=== PATIENT | male | born 1970 | race Caucasian/White ===

== ENCOUNTER 2020-05-13 06:02 | Outpatient (REF) | payer OTHER, SELFPAY ==
[2020-05-13 07:14] LABS: MANUAL DIFF FLAG NO
[2020-05-13 07:22] LABS: Basophils Percent Auto 0.3 % (0-2); Eosinophils Absolute Auto 0.3 X10*3/uL (0.0-0.4); Eosinophils Percent Auto 5.2 % (0-4); Hematocrit 41.8 % (42-52); Hemoglobin 13.8 g/dl (14.0-18.0); Imm Gran Abs Auto 0.02 X10*3/uL (0.00-0.03); Imm Gran Pct Auto 0.3 % (0.0-0.4); Lymphocytes Absolute Auto 1.9 X10*3/uL (1.2-4.9); Lymphocytes Percent Auto 29.1 % (20-40); Mean Corpuscular Hemoglobin 31.2 pg (27.0-33.0); Mean Corpuscular Volume 94.6 fL (80-98); Mean Platelet Volume 11.2 fL (9.4-12.4); Monocytes Absolute Auto 0.7 X10*3/uL (0.1-1.2); Monocytes Percent Auto 10.5 % (2-11); Neutrophils Absolute Auto 3.6 X10*3/uL (2.0-8.3); Neutrophils Percent Auto 54.6 % (45-73); Platelet Count 255 X10*3/uL (160-400); Red Blood Count 4.42 X10*6/uL (4.60-5.80); Red Cell Distribution Width 12.5 % (11.0-16.0); White Blood Count 6.6 X10*3/uL (4.8-10.8)
[2020-05-13 07:33] LABS: Glucose Urine UA NEG (NEG); Leukocyte Esterase Urine NEG (NEG); Nitrite Urine NEG (NEG); Specific Gravity - Urine 1.025 (1.005-1.025); Urine Blood NEG (NEG); Urine Ketones NEG (NEG); Urine Protein NEG (NEG-TRACE)
[2020-05-13 07:38] LABS: Appearance Urine CLEAR; Color Urine YELLOW
[2020-05-13 07:48] LABS: Alanine Aminotransferase 13 U/L (0-40); Albumin Level 4.2 g/dL (3.5-5.0); Alkaline Phosphatase 62 U/L (39-117); Anion Gap 13 (12-20); Aspartate Amino Transferase 14 U/L (5-37); Blood Urea Nitrogen 23 mg/dL (9-16); Calcium 8.2 mg/dL (8.4-10.2); Carbon Dioxide 25 mmol/L (22-29); Chloride 105 mmol/L (96-108); Cholesterol 166 mg/dL; Estimated Glomerular Filt Rate > 60; Glucose Fasting 82 mg/dL (60-99); HDL Cholesterol 51 mg/dL; LDL Cholesterol Calculated 104 mg/dl; Potassium 4.4 mmol/L (3.3-5.1); Sodium 139 mmol/L (135-145); Total Protein 7.1 g/dL (6.5-8.0); Triglycerides 59 mg/dL
[2020-05-13 08:11] LABS: Vitamin D 25-OH Total 26.7 ng/mL (>30)
== END 2020-05-13 06:03 | disposition home or self-care (01) ==
LOC: HO.LAB 06:02
PROVIDERS: PCP Internal Medicine; Visit Provider Internal Medicine
DX: Z00.00 Encounter for general adult medical examination without abnormal findings (principal)
CPT/HCPCS: 36415; 80053; 80061; 81003; 82306; 85025

== ENCOUNTER 2020-07-06 09:47 | Outpatient (REF) | payer OTHER, SELFPAY ==
[2020-07-06 10:49] LABS: Iron 165 mcg/dL (45-160); Percent Iron Saturation 65 % (15-50); Total Iron Binding Capacity 253 mcg/dL (228-428); Unsaturated Iron Binding 88 ug/dL
[2020-07-06 11:12] LABS: Thyroid Stimulating Hormone 2.43 uIU/mL (0.32-4.0)
[2020-07-06 11:42] LABS: Vitamin B12 500 pg/mL (200-900)
== END 2020-07-06 09:48 | disposition home or self-care (01) ==
LOC: HO.10HDL 09:47
PROVIDERS: Visit Provider Internal Medicine
DX: D64.9 Anemia, unspecified (principal); R63.5 Abnormal weight gain
CPT/HCPCS: 36415; 82607; 83540; 84443

== ENCOUNTER 2020-09-29 11:27 | Outpatient (REF) | payer OTHER, SELFPAY ==
[2020-09-29 12:41] LABS: Influenza A PCR NEGATIVE (Negative); Influenza B PCR NEGATIVE (Negative); Resp Syncy Virus RNA Qual PCR NEGATIVE (Negative); SARS COV2 PCR INHOUSE NEGATIVE (Negative)
== END 2020-09-29 11:28 | disposition home or self-care (01) ==
LOC: HO.LNP 11:27
PROVIDERS: Visit Provider Internal Medicine
DX: Z20.822 Contact with and (suspected) exposure to COVID-19 (principal)
CPT/HCPCS: 0241U

== ENCOUNTER 2021-10-21 06:02 | Outpatient (REF) | payer OTHER, SELFPAY ==
[2021-10-21 06:07] LABS: MANUAL DIFF FLAG NO
[2021-10-21 07:39] LABS: Basophils Percent Auto 0.5 % (0-2); Eosinophils Absolute Auto 0.5 X10*3/uL (0.0-0.4); Eosinophils Percent Auto 5.4 % (0-4); Hematocrit 43.2 % (42.0-52.0); Hemoglobin 14.3 g/dl (14.0-18.0); Imm Gran Abs Auto 0.03 X10*3/uL (0.00-0.03); Imm Gran Pct Auto 0.4 % (0.0-0.4); Lymphocytes Percent Auto 24.3 % (20-40); Mean Corpuscular HGB Conc 33.1 g/dl (31.0-36.0); Mean Corpuscular Hemoglobin 30.8 pg (27.0-33.0); Mean Corpuscular Volume 92.9 fL (80.0-98.0); Mean Platelet Volume 10.7 fL (9.4-12.4); Monocytes Absolute Auto 0.9 X10*3/uL (0.1-1.2); Monocytes Percent Auto 10.9 % (2-11); Neutrophils Absolute Auto 4.8 x10*3/uL (2.0-8.3); Neutrophils Percent Auto 58.5 % (45-73); Platelet Count 293 X10*3/uL (160-400); Red Blood Count 4.65 X10*6/uL (4.60-5.80); Red Cell Distribution Width 12.5 % (11.0-16.0); White Blood Count 8.3 X10*3/uL (4.8-10.8)
[2021-10-21 07:59] LABS: Alanine Aminotransferase 21 U/L (0-40); Albumin Level 4.3 g/dL (3.5-5.0); Alkaline Phosphatase 74 U/L (39-117); Anion Gap 15 (12-20); Aspartate Amino Transferase 17 U/L (5-37); Bilirubin Total 0.8 mg/dL (0.0-1.0); Blood Urea Nitrogen 18 mg/dL (9-16); Calcium 8.8 mg/dL (8.4-10.2); Carbon Dioxide 26 mmol/L (22-29); Chloride 105 mmol/L (96-108); Cholesterol 182 mg/dL; Estimated Glomerular Filt Rate > 60; Glucose Fasting 91 mg/dL (60-99); HDL Cholesterol 53 mg/dL; Iron 61 mcg/dL (45-160); LDL Cholesterol Calculated 117 mg/dl; Percent Iron Saturation 23 % (15-50); Potassium 4.8 mmol/L (3.3-5.1); Sodium 141 mmol/L (135-145); Total Iron Binding Capacity 265 mcg/dL (228-428); Total Protein 7.6 g/dL (6.5-8.0); Triglycerides 61 mg/dL; Unsaturated Iron Binding 204 ug/dL
[2021-10-21 08:07] LABS: Prostate Specific Antigen 0.92 ng/mL (<0.05-4.0); Vitamin D 25-OH Total 26.3 ng/mL (>30)
== END 2021-10-21 06:03 | disposition home or self-care (01) ==
LOC: HO.LAB 06:02
PROVIDERS: PCP Internal Medicine; Visit Provider Internal Medicine
DX: Z00.00 Encounter for general adult medical examination without abnormal findings (principal); E55.9 Vitamin D deficiency, unspecified; Z12.5 Encounter for screening for malignant neoplasm of prostate
CPT/HCPCS: 36415; 80053; 80061; 82306; 83540; 84153; 85025

== ENCOUNTER 2021-10-22 11:21 | Outpatient (REF) | payer OTHER, SELFPAY ==
--- NOTE | ~2021-10-22 | XR_ITS ---
EXAMINATION: XR CHEST CLINICAL INFORMATION: Cough and wheezing COMPARISON: None TECHNIQUE: 2 views of the chest were obtained. FINDINGS: No significant abnormality is noted involving the heart, lungs, mediastinum, bony thorax or soft tissues. XR/XR chest 2V IMPRESSION: Unremarkable chest examination.
== END 2021-10-22 11:22 | disposition home or self-care (01) ==
LOC: HO.XRAY 11:21
PROVIDERS: PCP Internal Medicine; Visit Provider Internal Medicine
DX: R05.9 Cough, unspecified (principal); R06.2 Wheezing
CPT/HCPCS: 71046

== ENCOUNTER 2021-11-11 09:40 | Outpatient (REF) | payer OTHER, SELFPAY ==
--- NOTE | ~2021-11-11 | FL_ITS ---
EXAMINATION: XR GI SERIES CLINICAL INFORMATION: Dysphagia. COMPARISON: None TECHNIQUE: Routine upper GI air-contrast study was performed in upright and lying position. FINDINGS: Following oral administration of thick barium and effervescent granules, there is normal propagation of bolus from the oral cavity through the pharynx, esophagus into stomach without obstruction, narrowing or stricture. Prominent mucosal pattern is seen within the pharynx but no ulceration or diverticulum seen. On placing patient supine and prone lying, the course, caliber and peristalsis of the stomach, duodenal bulb and the sweep is normal. The mucosal pattern is normal. There is mild gastroesophageal reflux without hiatal hernia. FLUOROSCOPY TIME: 2.3 minutes DOSE AREA PRODUCT: 32.298 Gy-cm2 (microgray-meter squared) FL/FL upper GI series IMPRESSION: Mild gastroesophageal reflux without hiatal hernia. Prominent mucosal pattern in the pharynx but no ulceration, mass or diverticulum visualized.
== END 2021-11-11 09:41 | disposition home or self-care (01) ==
LOC: HO.XRAY 09:40
PROVIDERS: PCP Internal Medicine; Visit Provider Internal Medicine
DX: R13.10 Dysphagia, unspecified (principal)
CPT/HCPCS: 74240

== ENCOUNTER → 2022-04-26 11:49 | Outpatient (BNVA) | payer OTHER, SELFPAY | PROVIDERS: PCP Internal Medicine; Referring Provider Internal Medicine; Visit Provider Surgery | DX: Z13.89 Encounter for screening for other disorder (principal) ==

== ENCOUNTER 2022-05-17 12:41 | Outpatient (REF) | payer OTHER, SELFPAY ==
--- NOTE | ~2022-05-17 | US_ITS ---
EXAMINATION: US ABDOMEN LIMITED CLINICAL INFORMATION: Ventral hernia without obstruction or gangrene. COMPARISON: None available. TECHNIQUE: Real-time imaging of the supraumbilical region. FINDINGS: In the supraumbilical region, a fat-containing hernia defect is noted, with measuring approximately 1.4 x 0.8 cm. The adjacent cutaneous, subcutaneous, muscular and fascial planes are unremarkable. No mass or fluid collection is seen. No lymphadenopathy is noted. No foreign body is noted. US/US abdomen limited IMPRESSION: A 1.4 cm in maximal diameter fat-containing supraumbilical hernia defect is noted.
== END 2022-05-17 12:42 | disposition home or self-care (01) ==
LOC: HO.US 12:41
PROVIDERS: Visit Provider Surgery
DX: K43.9 Ventral hernia without obstruction or gangrene (principal)
CPT/HCPCS: 76705

== ENCOUNTER 2022-10-10 06:03 | Day surgery (SDC) | payer OTHER, SELFPAY ==
[2022-10-05 14:13] VITALS: BMI 42.9
--- NOTE | 2022-10-06 12:10 | HO.ANESPROP2 ---
Documented by User: Ava Knowles NP 10/06/22 12:10 HPI - Anesthesia Eval Consult details Narrative: 52yo M for Hernia Repair Supraumbilical ventral PMFSH Active Problems Active Problems: All Active Problems (Updated 10/05/22 @ 14:12 by Jessica Edwards RN) Ventral hernia (Acute) Past Medical History Medical History GERD (gastroesophageal reflux disease) Family History Family History Paternal Grandmother Colon cancer Surgical History Surgical History History of endoscopic retrograde cholangiopancreatography History of tonsillectomy Social History Social History Are you a primary childbirth and infant care teacher to a significant other at home: No Do you presently have visiting nurse or other home services: No Alcohol intake: current Alcohol intake frequency: holidays/special occasions only Patient Tobacco Use Status: Never used Tobacco Use of substances other than those prescribed or required for medical reasons: No Have you been hit, kicked, punched, or otherwise hurt by someone within the past year? If so, by whom?: No Are you DNR?: No Advance Directives: No Advance Directives Information Provided: Yes Advance Directives on File: No Recently lost weight without trying: No Eating poorly because of decreased appetite: No Nutrition Risks: No Nutritional Risk Poor oral hygiene: No Meds Allergies Allergy/AdvReac Type Severity Reaction Status Date / Time cephalexin Allergy Intermediate Hives Verified 10/10/22 07:12 Home Medications Medication Instructions Recorded Confirmed Last Taken Type omeprazole 20 mg capsule,delayed 20 mg PO DAILY PRN Acid Reflux 10/05/22 10/05/22 Unknown History release Exam Exam Date and Time: October 06, 2022 1210 Height,Weight and Vital Signs: Height 5 ft 6 in Weight 120.656 kg Assessment and Plan Assessment Anesthesia Assessment: Chart Reviewed Documented by User: Maria Victoria Swann MD 10/10/22 08:08 [facility] Past Medical History Medical History GERD (gastroesophageal reflux disease) Family History Family History Paternal Grandmother Colon cancer Family history of problems with anesthesia: No Surgical History Surgical History History of endoscopic retrograde cholangiopancreatography History of tonsillectomy History of Problems with Anesthesia: No Social History Social History Are you a primary childbirth and infant care teacher to a significant other at home: No Do you presently have visiting nurse or other home services: No Alcohol intake: current Alcohol intake frequency: holidays/special occasions only Patient Tobacco Use Status: Never used Tobacco Use of substances other than those prescribed or required for medical reasons: No Have you been hit, kicked, punched, or otherwise hurt by someone within the past year? If so, by whom?: No Are you DNR?: No Advance Directives: No Advance Directives Information Provided: Yes Advance Directives on File: No Recently lost weight without trying: No Eating poorly because of decreased appetite: No Nutrition Risks: No Nutritional Risk Poor oral hygiene: No Meds Allergies Allergy/AdvReac Type Severity Reaction Status Date / Time cephalexin Allergy Intermediate Hives Verified 10/10/22 07:12 Home Medications Medication Instructions Recorded Confirmed Last Taken Type omeprazole 20 mg capsule,delayed 20 mg PO DAILY PRN Acid Reflux 10/05/22 10/05/22 Unknown History release Exam Airway Mallampati Class: III TM Dist: <=3cm Neck ROM: Limited Heart: rrr Lungs: cta Assessment and Plan Assessment Anesthesia Assessment: Anesthesia Plan Discussed Final Anesthetic Review Family History of Problems with Anesthesia: No History of Problems with Anesthesia: No NPO: Yes ASA Class: II Final Preanesthetic Review: No Changes in Pt Med Stat, Meds/Allgs Chart Reviewed, Consent Obtained/Reviewed and Anes Risks/Benef Reviewed Patient Risk: Intermediate Procedure Risk: Intermediate Anesthetic Plan Anesthetic Plan: GA and Regional Block (rectus sheath bilateral) Disposition: Standard PACU
[2022-10-10] MEDS: vancomycin/NS 2,000 MG/500 ML PLAST..BAG 250 MG IV (06:58)
[2022-10-10] MEDS: Lactated Ringers 1,000 ML 100 ML IVCONT (06:59)
--- NOTE | 2022-10-10 07:24 | MHC.SHP ---
Pre-Procedural Eval Section A Date of Service: 10/10/22 The patient is an INPATIENT: No Changes since office visit: Yes Patient answered all questions; No Cold of Flu in the past 2 weeks, No New Medical Problems and No Changes in Medication The History & Physical has been completed within 30 days and I have reviewed it.: No Section B Chief Complaint: Ventral hernia without obstruction or gangrene Details of Present Illness: Reports increased pain at the hernia site since last visit. No new symptoms. Relevant Family History (Specify if Yes): No Relevant Social History: None Present Medications: see Short Stay Collaborative assessment Medical History: No relevant PMH History of Previous Operations: No relevant previous surgery Allergies: Allergies Allergy/AdvReac Type Severity Reaction Status Date / Time cephalexin Allergy Intermediate Hives Verified 10/10/22 07:12 Review of Systems Sugical H&P ROS: Negative: Constitution, Cardiovascular, Respiratory, Neurological, Psychiatric, Hem-Onc, Allergic/Immunologic, Gastrointestinal, Genitourinary, Musculoskeletal, Integumentary, Endocrine and Eyes/Ears/Nose/Throat Exam Surgical H&P Exam: Normal: HEENT, Normal: Heart, Normal: Lungs, Normal: Extremities, Normal: Abdomen, Normal: Skin and Normal: Neurological Plan Diagnosis/Plan: Unchanged I have reviewed the history and physical and performed a pertinent physical examination on my patient. No changes have occurred unless specified. Time Spent With Patient Time: Total time managing care of this patient today ____ minutes.
--- NOTE | 2022-10-10 08:29 | P.OP_ITS ---
Operative Note Operative Note Date of Service: 10/10/22 Narrative: Preoperative diagnosis: Ventral hernia Postoperative diagnosis: Same Procedure: Repair of ventral hernia with mesh Surgeon: Yoshi Nunez MD Robotic Machine Tender Production: Mary Beck PA-C Anesthesia: General endotracheal Indications for procedure: 52-year-old male patient presenting with a painful lump located just above the umbilicus. On examination the patient has a palpable lump which increases with Valsalva maneuvers. This was confirmed by ultrasound. Operative findings: 2.5 cm ventral hernia, reducible Specimen: None Estimated blood loss: 2 mL Complications: None Procedure details: Patient was brought to the OR placed in a supine position. After administering general anesthesia patient's abdomen was prepped with ChloraPrep and draped in a sterile fashion. A surgical time-out was called the consent confirmed. Patient received preoperative antibiotics and Venodyne boots were in place. A midline incision was made just above the umbilicus and carried out through subcutaneous tissue. Hernia sac was identified in the midline just above the umbilicus. This was dissected circumferentially down to the fascial edge. The hernia sac was then reduced into the abdominal cavity. A preperi toneal space was then created without entering peritoneum. Defect was measuring at 2.5 cm. A 6.4 cm Ventralex mesh was then obtained. This was placed in the preperitoneal space and secured in 4 quadrants using a 1 Tycron suture. Fascia was then closed over the mesh using [id number] 1 Tycron sutures. Wounds were then irrigated with saline solution and suctioned dry. Subcutaneous tissue and dermis were then reapproximated using interrupted 3-0 Polysorb sutures. Skin was closed using a running subcuticular 4-0 Polysorb suture. Steri-Strips, flat gauze and Tegaderm were then applied. A rectus sheath block was then applied by Anesthesiology. The patient tolerated the procedure well. Sponge, instrument, and needle counts reported as correct. He was transferred to PACU in stable condition.
[2022-10-10 09:00] VITALS: BP 136/86; PULSE 81; RESP 18; TEMP 36.4; O2SAT 98
[2022-10-10 09:05] VITALS: BP 108/62; PULSE 77; RESP 18; O2SAT 94
[2022-10-10 09:10] VITALS: BP 109/64; PULSE 75; RESP 18; O2SAT 93
[2022-10-10 09:15] VITALS: BP 102/64; PULSE 70; RESP 18; O2SAT 93
[2022-10-10 09:30] VITALS: BP 102/57; PULSE 71; RESP 18; TEMP 36.3; O2SAT 95
== END 2022-10-10 10:10 | disposition home or self-care (01) ==
PROVIDERS: PCP Internal Medicine; Visit Provider Surgery
PROC: (CPT 49591; principal; 2022-10-10 07:30)
DX: K43.9 Ventral hernia without obstruction or gangrene (principal); K21.9 Gastro-esophageal reflux disease without esophagitis; Z79.899 Other long term (current) drug therapy; Z88.1 Allergy status to other antibiotic agents
CPT/HCPCS: 49591; C1781; J0131; J1100; J1170; J2250; J2405; J3010; J3370

== ENCOUNTER → 2022-10-10 06:03 | Outpatient (BNV) | payer OTHER, SELFPAY | PROVIDERS: PCP Internal Medicine; Visit Provider Surgery | DX: K44.9 Diaphragmatic hernia without obstruction or gangrene (principal) | CPT/HCPCS: 49591 ==

== ENCOUNTER 2022-10-18 09:33 | Outpatient (AMB) | payer OTHER, SELFPAY ==
--- NOTE | 2022-10-18 09:42 | A.OFFVIS_ITS ---
Intake Vital Signs 10/18/22 09:50 Height 5 ft 6 in Weight 271 lb BMI 43.7 BP 161/91 H Blood Pressure Location Lt brachial Position Sitting Pulse 88 Intake Visit Reasons: S/P supraumbilical ventral hernia Intake Note: Patient is seen in office for post op assessment post supraumbilical ventral hernia. Patient c/o: denies any concerns Auto Brake Technician Required: No Accompanied by: Self / Same As Patient Allergies cephalexin Allergy (Intermediate, Verified 10/18/22 09:43) Hives Medication List - Last Reconciled 10/18/22 by Yoshi Nunez MD omeprazole 20 mg PO DAILY PRN HPI HPI Comments History of Present Illness Details 52-year-old male patient returning 1 week following repair of a ventral hernia located above the umbilicus. He tolerated the procedure well he reports only minor discomfort at this time. He denies any fever, chills, nausea or vomiting. [facility] Medical History GERD (gastroesophageal reflux disease) Surgical History H/O ventral hernia repair (10/10/22) History of endoscopic retrograde cholangiopancreatography History of tonsillectomy Family History Paternal Grandmother Colon cancer Social History Are you a primary career and transition teacher to a significant other at home: No Do you presently have visiting nurse or other home services: No Alcohol intake: current Alcohol intake frequency: holidays/special occasions only Patient Tobacco Use Status: Never used Tobacco Physical Exam Vital Signs: Last Vital Signs Pulse 88 10/18/22 09:50 BP 161/91 H 10/18/22 09:50 BMI result Body Mass Index 43.7 Const General: no acute distress and well developed Nutritional Appearance: well nourished Orientation/consciousness: patient oriented x3 Resp Effort & Inspection: normal respiratory effort GI Other: Midline incision is clean, dry, and intact without redness or discharge. No hernia noted with Valsalva maneuvers. Abdomen image: 1. Incision midline, clean dry and intact. Skin General skin exam: no rashes or lesions noted Neuro General: patient oriented x3 Extrem General: Yes no clubbing, cyanosis or edema Assessment & Plan Assessment & Plan (1) Ventral hernia: Code(s): K43.9 - Ventral hernia without obstruction or gangrene Plan Patient returns 1 week following repair of a ventral hernia with mesh. He tolerated the procedure well the wounds are healing nicely. He should continue to avoid lifting greater than 10 lb and return in 1 month for follow-up examination. Coding Level of Care Code Global (95105) Diagnoses Ventral hernia K43.9
[2022-10-18 09:50] VITALS: BP 161/91; PULSE 88; BMI 43.7
== END 2022-10-18 09:58 | disposition home or self-care (01) ==
PROVIDERS: PCP Internal Medicine; Visit Provider Surgery
DX: K43.9 Ventral hernia without obstruction or gangrene (principal)
CPT/HCPCS: 99213

== ENCOUNTER → 2022-10-18 09:33 | Outpatient (BNVA) | payer OTHER, SELFPAY | PROVIDERS: PCP Internal Medicine; Visit Provider Surgery ==

== ENCOUNTER 2022-11-11 09:01 | Outpatient (AMB) | payer OTHER, SELFPAY ==
--- NOTE | 2022-11-11 09:09 | MHC.OFFVIS ---
Intake Vital Signs 11/11/22 09:10 Height 5 ft 6 in Weight 262 lb BMI 42.3 BP 146/83 H Blood Pressure Location Lt brachial Position Sitting Pulse 86 Intake Visit Reasons: 1 mth follow up supraumbilical ventral hernia Intake Note: Patient is seen in office for one month follow up visit, post supraumbilical ventral hernia. Patient c/o: admits to feeling a string coming out of the incision Horse Race Timer Required: No Accompanied by: Self / Same As Patient Allergies cephalexin Allergy (Intermediate, Verified 11/11/22 09:10) Hives Medication List - Last Reconciled 11/11/22 by Yoshi Nunez MD omeprazole 20 mg PO DAILY PRN HPI HPI Comments History of Present Illness Details 52-year-old male status post repair of a ventral hernia on 10/10/2022. He returns approximately 1 month for final postoperative visit. He feels well and denies any ongoing pain. Does note a small white suture from the bottom of the incision. [facility] Medical History GERD (gastroesophageal reflux disease) Surgical History H/O ventral hernia repair (10/10/22) History of endoscopic retrograde cholangiopancreatography History of tonsillectomy Family History Paternal Grandmother Colon cancer Social History Are you a primary medical care evaluation specialist to a significant other at home: No Do you presently have visiting nurse or other home services: No Alcohol intake: current Alcohol intake frequency: holidays/special occasions only Patient Tobacco Use Status: Never used Tobacco Physical Exam Const General: no acute distress and well developed Nutritional Appearance: well nourished Orientation/consciousness: patient oriented x3 Resp Effort & Inspection: normal respiratory effort GI Other: Midline incision is clean, dry, and intact without redness or discharge. Small suture consistent with a 4-0 Polysorb was removed at the inferior portion of the incision. There is no evidence of infection. No hernia noted with Valsalva maneuvers. Skin General skin exam: no rashes or lesions noted Neuro General: patient oriented x3 Extrem General: Yes no clubbing, cyanosis or edema Assessment & Plan Assessment & Plan (1) Ventral hernia: Code(s): K43.9 - Ventral hernia without obstruction or gangrene Plan 52-year-old male patient status post repair of a ventral hernia with mesh. He tolerated the procedure well and he is now approximately 1 month postop. His wounds are clean, dry, and intact without redness or discharge. He may resume activity without restrictions and should follow up as needed Coding Level of Care Code Global (32039) Diagnoses Ventral hernia K43.9
[2022-11-11 09:10] VITALS: BP 146/83; PULSE 86; BMI 42.3
== END 2022-11-11 09:15 | disposition home or self-care (01) ==
PROVIDERS: PCP Internal Medicine; Visit Provider Surgery
DX: K43.9 Ventral hernia without obstruction or gangrene (principal)
CPT/HCPCS: 99213

== ENCOUNTER → 2022-11-11 09:01 | Outpatient (BNVA) | payer OTHER, SELFPAY | PROVIDERS: PCP Internal Medicine; Visit Provider Surgery ==

== ENCOUNTER 2023-03-02 15:44 | Outpatient (REF) | payer OTHER, SELFPAY ==
[2023-03-02 15:53] LABS: MANUAL DIFF FLAG NO
[2023-03-02 16:02] LABS: Basophils Percent Auto 0.5 % (0-2); Eosinophils Absolute Auto 0.4 X10*3/uL (0.0-0.4); Eosinophils Percent Auto 4.6 % (0-4); Hematocrit 45.4 % (42.0-52.0); Hemoglobin 15.1 g/dl (14.0-18.0); Imm Gran Abs Auto 0.02 X10*3/uL (0.00-0.03); Imm Gran Pct Auto 0.2 % (0.0-0.4); Lymphocytes Absolute Auto 2.3 X10*3/uL (1.2-4.9); Lymphocytes Percent Auto 27.6 % (20-40); Mean Corpuscular HGB Conc 33.3 g/dl (31.0-36.0); Mean Corpuscular Hemoglobin 31.3 pg (27.0-33.0); Mean Corpuscular Volume 94.2 fL (80.0-98.0); Mean Platelet Volume 10.8 fL (9.4-12.4); Monocytes Absolute Auto 0.8 X10*3/uL (0.1-1.2); Monocytes Percent Auto 9.5 % (2-11); Neutrophils Absolute Auto 4.8 x10*3/uL (2.0-8.3); Neutrophils Percent Auto 57.6 % (45-73); Platelet Count 296 X10*3/uL (160-400); Red Blood Count 4.82 X10*6/uL (4.60-5.80); Red Cell Distribution Width 12.5 % (11.0-16.0); White Blood Count 8.3 X10*3/uL (4.8-10.8)
[2023-03-02 16:39] LABS: Alanine Aminotransferase 20 U/L (0-40); Albumin Level 4.5 g/dL (3.5-5.0); Alkaline Phosphatase 76 U/L (39-117); Anion Gap 11 (12-20); Aspartate Amino Transferase 18 U/L (5-37); Bilirubin Total 0.6 mg/dL (0.0-1.0); Blood Urea Nitrogen 11 mg/dL (9-16); C Reactive Protein 0.31 mg/dL (< or = 0.50); Calcium 9.1 mg/dL (8.4-10.2); Carbon Dioxide 28 mmol/L (22-29); Chloride 106 mmol/L (96-108); Estimated Glomerular Filt Rate > 60; Glucose Random 90 mg/dL (60-115); Sodium 141 mmol/L (135-145); Total Protein 8.3 g/dL (6.5-8.0)
== END 2023-03-02 15:45 | disposition home or self-care (01) ==
LOC: HO.LAB 15:44
PROVIDERS: PCP Internal Medicine; Visit Provider Internal Medicine
DX: R10.9 Unspecified abdominal pain (principal); Z87.898 Personal history of other specified conditions
CPT/HCPCS: 36415; 80053; 82550; 85025; 86140

== ENCOUNTER 2023-03-14 09:11 | Outpatient (REF) | payer OTHER, SELFPAY ==
--- NOTE | ~2023-03-14 | US_ITS ---
EXAMINATION: US ABDOMEN COMPLETE CLINICAL INFORMATION: Right upper quadrant pain. COMPARISON: Limited abdominal ultrasound 06/02/2022. TECHNIQUE: Real-time imaging of the abdominal viscera. FINDINGS: PANCREAS: Normal. ABDOMINAL AORTA: The proximal, mid, and distal segments are normal in caliber. INFERIOR VENA CAVA: Visualized portions are normal. LIVER: Normal. The liver is normal in size. The liver contour is normal. Parenchymal echogenicity is normal. No focal hepatic lesion. There is no intrahepatic biliary duct dilatation seen. GALLBLADDER: Multiple mobile gallstones are present contracted gallbladder. Wall echo shadow complex. No evidence of pericholecystic fluid. Negative sonographic Ann sign. COMMON BILE DUCT: Normal in caliber measuring 0.8 cm in diameter. RIGHT KIDNEY: No hydronephrosis or renal calculi. The kidney measures 11.7 cm in maximum dimension. Lower pole right renal cyst measures 8 x 7 x 9 mm. No further routine follow-up is needed. LEFT KIDNEY: No hydronephrosis. No renal calculi or focal parenchymal lesions. The kidney measures 10.7 cm in maximum dimension. SPLEEN: The spleen measures 11.3 cm in maximum dimension. FREE FLUID: None. US/US abdomen complete IMPRESSION: Contracted gallbladder with numerous gallstones. Wall echo shadow complex. Advise clinical correlation for acute cholecystitis.
== END 2023-03-14 09:12 | disposition home or self-care (01) ==
LOC: HO.US 09:11
PROVIDERS: PCP Internal Medicine; Visit Provider Internal Medicine
DX: R10.11 Right upper quadrant pain (principal)
CPT/HCPCS: 76700

== ENCOUNTER → 2024-01-12 07:57 | Outpatient (REF) | payer OTHER, SELFPAY ==
--- NOTE | 2024-01-12 08:12 | CA_ITS ---
Acquisition Time: 2024-01-12 08:16:13 Total Exercise Time: 00:06:18 Test Indications: CP Medications: SEE H Protocol: DOMINICK Max HR: 148 BPM 88% of Pred: 168 BPM Max BP: 164/078 mmHG Max Work Load: 7.4 METS Exercise stress test with exercise 6 min 18 sec of Dominick protocol, achieving 88% MPHR, with mild sob, no chest discomfort, with rare isolated PAC and sinus arrythmia seen at baseline and in recovery, with artifact at peak exercise, without ischemic changes at 34 sec recovery, then with slight downsloping of STs lateral leads, and borderline ST depression lead II in recover, equivocal for ischemia. Test reviewed with Dr Pickard Recommend exercise nuclear stress test for further evaluation. Message sent to Dr Mcdermott. Referred By: Eladio Mcdermott Overread By: ANNAMARIE TY
[2024-01-12 09:30] LABS: MANUAL DIFF FLAG NO
[2024-01-12 10:37] LABS: Basophils Percent Auto 0.5 % (0-2); Eosinophils Absolute Auto 0.4 X10*3/uL (0.0-0.4); Eosinophils Percent Auto 5.2 % (0-4); Hemoglobin 14.9 g/dl (14.0-18.0); Imm Gran Abs Auto 0.02 X10*3/uL (0.00-0.03); Imm Gran Pct Auto 0.2 % (0.0-0.4); Lymphocytes Absolute Auto 1.6 X10*3/uL (1.2-4.9); Lymphocytes Percent Auto 18.9 % (20-40); Mean Corpuscular HGB Conc 33.9 g/dl (31.0-36.0); Mean Corpuscular Volume 91.7 fL (80.0-98.0); Mean Platelet Volume 11.1 fL (9.4-12.4); Monocytes Absolute Auto 0.8 X10*3/uL (0.1-1.2); Neutrophils Absolute Auto 5.5 x10*3/uL (2.0-8.3); Neutrophils Percent Auto 65.2 % (45-73); Platelet Count 290 X10*3/uL (160-400); Red Cell Distribution Width 12.6 % (11.0-16.0); White Blood Count 8.4 X10*3/uL (4.8-10.8)
[2024-01-12 11:19] LABS: Alanine Aminotransferase 24 U/L (0-40); Albumin Level 4.2 g/dL (3.5-5.0); Alkaline Phosphatase 84 U/L (39-117); Anion Gap 12 (12-20); Aspartate Amino Transferase 22 U/L (5-37); Bilirubin Total 0.5 mg/dL (0.0-1.0); Blood Urea Nitrogen 11 mg/dL (9-16); Calcium 8.9 mg/dL (8.4-10.2); Carbon Dioxide 22 mmol/L (22-29); Chloride 107 mmol/L (96-108); Cholesterol 177 mg/dL (<200); Estimated Glomerular Filt Rate > 60; Glucose Fasting 90 mg/dL (60-99); HDL Cholesterol 46 mg/dL (>40); LDL Cholesterol Calculated 116 mg/dL (<100); Potassium 4.1 mmol/L (3.3-5.1); Sodium 137 mmol/L (135-145); Total Protein 7.7 g/dL (6.5-8.0); Triglycerides 77 mg/dL (<150)
[2024-01-12 11:24] LABS: Prostate Specific Antigen 1.08 ng/mL (<0.05-4.0)
[2024-01-12 11:27] LABS: Vitamin D 25-OH Total 25.4 ng/mL (>30)
[2024-01-12 12:16] LABS: Appearance Urine Clear; Color Urine Yellow; Glucose Urine UA Negative (Negative); Leukocyte Esterase Urine Negative (Negative); Nitrite Urine Negative (Negative); PH 6.5 (5.0-9.0); Specific Gravity - Urine 1.015 (1.005-1.025); Urine Blood Negative (Negative); Urine Ketones Negative (Negative); Urine Protein Negative (Neg-Trace)
== END ==
LOC: HO.CARD 07:57
PROVIDERS: PCP Internal Medicine; Visit Provider Internal Medicine
DX: Z12.5 Encounter for screening for malignant neoplasm of prostate (principal); R07.9 Chest pain, unspecified; K21.9 Gastro-esophageal reflux disease without esophagitis; E55.9 Vitamin D deficiency, unspecified
CPT/HCPCS: 36415; 80053; 80061; 81003; 82306; 84153; 85025; 93017

== ENCOUNTER → 2024-01-12 08:12 | Outpatient (BNV) | payer OTHER, SELFPAY | PROVIDERS: PCP Internal Medicine; Visit Provider Nurse Practitioner Family | DX: I49.3 Ventricular premature depolarization (principal) | CPT/HCPCS: 93016; 93018 ==

== ENCOUNTER 2024-07-25 09:19 | Outpatient (AMB) | payer OTHER, SELFPAY ==
--- NOTE | 2024-07-25 09:23 | MHC.PC.OV ---
Vital Signs 07/25/24 09:25 Height 5 ft 5 in Weight 256 lb BMI 42.6 BP 120/80 Blood Pressure Location Lt brachial Position Sitting Pulse 71 Pulse Source Pulse Oximeter Temp 97.7 F Temp Source Axillary Pulse Oximetry (%) 97 Oxygen Delivery Method Room Air Intake Visit Reasons: Routine - see comments Product Examiner Required: No Accompanied by: Self / Same As Patient Allergies cephalexin Allergy (Intermediate, Verified 07/25/24 09:23) Hives Tobacco use date assessed: 07/25/24 Dental Screening Dental Screen Date: 07/25/24 Did you have a dental visit in the last 12 months?: Yes Did you have a dental problem in the last 6 months where you did not have access to dental care?: No HPI HPI Comments History of Present Illness Details The patient is a 53 year old male with a past medical history of GERD, hyperlipidemia, obesity, anemia, low vitamin D, obesity, ventral hernia presenting for follow up GERD: On omeprazole 20mg History of ventral hernia repair. Reports frequent central/left abdominal pain Colonoscopy ROS see HPI PHYSICAL EXAM: GENERAL: Alert and oriented x 3. NAD EYES: EOMI. Anicteric. HENT: Moist mucous membranes. No scleral icterus. No cervical lymphadenopathy. LUNGS: Clear to auscultation bilaterally. CARDIOVASCULAR: Regular rate and rhythm. No murmur. No JVD. ABDOMEN: Soft, ttp 4inch left of umbilicus EXTREMITIES: No edema. Non-tender. SKIN: No rashes or lesions. Warm. NEUROLOGIC: No focal neurological deficits. CN II-XII grossly intact PSYCHIATRIC: Cooperative. Appropriate mood and affect [facility] Medical History (Updated 07/28/24 @ 15:35 by Khadra Bazzi MD) GERD (gastroesophageal reflux disease) Surgical History H/O ventral hernia repair (10/10/22) History of endoscopic retrograde cholangiopancreatography History of tonsillectomy Family History (Updated 07/25/24 @ 09:31 by Erika Ramos MA) Paternal Grandmother Colon cancer Mother No problems noted. Father No problems noted. Social History Housing: House Are you a primary post anesthesia care unit nurse to a significant other at home: No Do you presently have visiting nurse or other home services: No Alcohol intake: current Alcohol intake frequency: holidays/special occasions only Patient Tobacco Use Status: Former Tobacco user e-Cigarette/Vaping Use: Former Use service: No Current occupational status: employed Cognitive needs: No Hearing needs: No Vision needs: Yes (rx glasses) Questionnaire PHQ-9 Over the last 2 weeks, how often have you been bothered by any of the following problems? 1. Little interest or pleasure in doing things: not at all 2. Feeling down, depressed, or hopeless: not at all 3. Trouble falling or staying asleep, or sleeping too much: not at all 4. Feeling tired or having little energy: not at all 5. Poor appetite or overeating: not at all 6. Feeling bad about yourself - or that you are a failure or have let yourself or your family down: not at all 7. Trouble concentrating on things, such as reading the newspaper or watching television: not at all 8. Moving or speaking so slowly that other people could have noticed. Or the opposite - being so fidgety or restless that you have been moving around a lot more than usual: not at all 9. Thoughts that you would be better off or of hurting yourself in some way: not at all Total score: 0 Depression Screening Interpretation: Negative Depression Screening Done: Yes 21353 - PHQ-9 Billing: Yes Source: Developed by Drs. Glen Aviles, Geetha Morris, Baron Saavedra and colleagues, with an educational christo from [employer] Thrive Questionnaire Date Thrive assessed: 07/25/24 I am a: Patient Within the past 12 months, did the food you bought not last and you didn't have the money to get more?: Never true Within the past 12 months, did you worry whether your food would run out before you got money to buy more?: Never true Do you have trouble paying for medicines?: No Do you have trouble getting transportation to medical appointments?: No Do you have trouble paying your heating and electricity bill?: No Do you have trouble taking care of your child, family member or friend?: No Do you have trouble with day-to-day activities such as bathing, preparing meals, shopping, managing finances, etc.?: No Are you currently unemployed and looking for a job?: No Are you interested in more education?: No THRIVE Score: 0 AUDIT C Alcohol Use Questionnaire (AUDIT-C) 1. How often do you have a drink containing alcohol?: Never 3. How often do you have six or more drinks on one occasion?: Never Total Score: 0 OLENA-7 AMB Questionnaire OLENA-7 Date OLENA - 7 assessed: 07/25/24 Feeling nervous, anxious, or on edge: 0 = Not at all Not being able to stop or control worryin = Not at all Worrying too much about different things: 0 = Not at all Trouble relaxin = Not at all Being so restless that it is hard to sit still: 0 = Not at all Becoming easily annoyed or irritable: 0 = Not at all Feeling afraid as if something awful might happen: 0 = Not at all Total OLENA-7 score (0-4 normal; 5-9 mild; 10-14 moderate; 15-21 severe): 0 Source: Developed by Drs. Glen Aviles, Geetha Morris, Baron Saavedra and colleagues, with an educational christo from [employer]). Physical exam (Primary Care) Vital Signs: Last Vital Signs Temp 97.7 F 07/25/24 09:25 Pulse 71 07/25/24 09:25 BP 120/80 07/25/24 09:25 Pulse Ox 97 07/25/24 09:25 Oxygen Delivery Method Room Air 07/25/24 09:25 BMI result Body Mass Index 42.6 Tobacco/Smoking Status: Tobacco use Status Tobacco use date assessed 07/25/24 07/25/24 09:25 Patient Tobacco Use Status Former Tobacco user 07/25/24 09:32 e-Cigarette/Vaping Use Former Use 07/25/24 09:32 PHQ-9: PHQ-9 Score PHQ-9: Total score 0 07/25/24 09:37 Depression Screening Interpretation: Negative Thrive Assessment: Date of Thrive Assessment Date Thrive assessed 07/25/24 07/25/24 09:25 Coding Level of Care Code New Pt Level 4 (48089) Complex EM visit Add On G2211 Diagnoses Ventral hernia without obstruction or gangrene K43.9 Obstruction and gangrene presence: without obstruction or gangrene Left upper quadrant abdominal pain R10.12 Abdominal location: left upper quadrant Left sided abdominal pain R10.9 Gastroesophageal reflux disease, unspecified whether esophagitis present K21.9 Esophagitis presence: esophagitis presence not specified Dyslipidemia E78.5 Additional Codes PHQ-9 - 36856 - PHQ-9 Billing: Yes ([id number]) Assessment & Plan Assessment & Plan (1) Ventral hernia: Code(s): K43.9 - Ventral hernia without obstruction or gangrene Category: Medical Qualifiers: Obstruction and gangrene presence: without obstruction or gangrene Qualified Code(s): K43.9 - Ventral hernia without obstruction or gangrene (2) Abdominal pain: Code(s): R10.9 - Unspecified abdominal pain Category: Medical Qualifiers: Abdominal location: left upper quadrant Qualified Code(s): R10.12 - Left upper quadrant pain (3) Left sided abdominal pain: Code(s): R10.9 - Unspecified abdominal pain Category: Medical (4) GERD (gastroesophageal reflux disease): Code(s): K21.9 - Gastro-esophageal reflux disease without esophagitis Category: Medical Qualifiers: Esophagitis presence: esophagitis presence not specified Qualified Code(s): K21.9 - Gastro-esophageal reflux disease without esophagitis (5) Dyslipidemia: Code(s): E78.5 - Hyperlipidemia, unspecified Category: Medical Plan 54 yo to establish care past medical surgical social reviewed Left sided abdominal pain, intermittent. history of ventral hernia repair-us/CT ordered GERD is stable on ompeprazole Trial zepbound Orders: Orders US abdomen complete 07/25/24 K21.9 - Gastro-esophageal reflux disease without esophagitis, K43.9 - Ventral hernia without obstruction or gangrene Complete Blood Count Auto Diff 07/25/24 E66.813 - Obesity, class 3, E78.5 - Hyperlipidemia, unspecified, K21.9 - Gastro-esophageal reflux disease without esophagitis, R10.9 - Unspecified abdominal pain Comprehensive Met. Panel 07/25/24 E66.813 - Obesity, class 3, E78.5 - Hyperlipidemia, unspecified, K21.9 - Gastro-esophageal reflux disease without esophagitis, R10.9 - Unspecified abdominal pain CT abdomen pelvis w IV con 07/25/24 K21.9 - Gastro-esophageal reflux disease without esophagitis, K43.9 - Ventral hernia without obstruction or gangrene, R10.9 - Unspecified abdominal pain Lipid Panel 07/25/24 E66.813 - Obesity, class 3, E78.5 - Hyperlipidemia, unspecified, K21.9 - Gastro-esophageal reflux disease without esophagitis, R10.9 - Unspecified abdominal pain TSH reflex Free T4 07/25/24 E66.813 - Obesity, class 3, E78.5 - Hyperlipidemia, unspecified, K21.9 - Gastro-esophageal reflux disease without esophagitis, R10.9 - Unspecified abdominal pain Referrals Cologuard Test Z12.11 - Encounter for screening for malignant neoplasm of colon, Z12.12 - Encounter for screening for malignant neoplasm of rectum Medications: New omeprazole 20 mg PO DAILY PRN 90 caps 3RF Acid Reflux Zepbound (tirzepatide (weight loss)) for 4 weeks 2.5 mg (0.5 mL) subcut QWEEK 2 mL 0RF NS E66.813 - Obesity, class 3, E78.5 - Hyperlipidemia, unspecified
[2024-07-25 09:25] VITALS: BP 120/80; PULSE 71; TEMP 36.5; O2SAT 97; BMI 42.6
--- OUTSIDE RECORDS SUMMARY | 2024-07-25 10:08 | XMS_ITS | Encounter Summary ---
Author Organization [facility] Address [address] [place] [address] Care Team Providers Care Business Analytics Specialist Name Role Phone Unavailable Primary Care Provider Unavailabl e Encounter Details Date Type Department Care Team (Latest Contact Info) Description 04/12/2018 Abstract [facility] CONVERSIONS Dental, Provider, DDS Social History Tobacco Use Types Packs/Day Years Used Date Smoking Tobacco: Never Assessed Sex and Gender Information Value Date Recorded Sex Assigned at Not on file Legal Sex Male 5:37 PM EDT Gender Identity Not on file Sexual Orientation Not on file documented as of this encounter Plan of Treatment Not on file documented as of this encounter Visit Diagnoses Not on filedocumented in this encounter
== END 2024-07-25 09:56 | disposition home or self-care (01) ==
LOC: HO.HMCHD 09:19
PROVIDERS: PCP Internal Medicine; Visit Provider Internal Medicine
DX: K43.9 Ventral hernia without obstruction or gangrene (principal); R10.12 Left upper quadrant pain; R10.9 Unspecified abdominal pain; K21.9 Gastro-esophageal reflux disease without esophagitis; E78.5 Hyperlipidemia, unspecified

== ENCOUNTER → 2024-07-25 09:19 | Outpatient (BNVA) | payer OTHER, SELFPAY | PROVIDERS: PCP Internal Medicine; Visit Provider Internal Medicine | DX: Z13.31 Encounter for screening for depression (principal); K43.9 Ventral hernia without obstruction or gangrene; R10.12 Left upper quadrant pain; K21.9 Gastro-esophageal reflux disease without esophagitis; E78.5 Hyperlipidemia, unspecified | CPT/HCPCS: 96127 ==

== ENCOUNTER 2024-10-04 06:03 | Outpatient (REF) | payer OTHER, SELFPAY ==
--- NOTE | ~2024-10-04 | CT_ITS ---
CLINICAL HISTORY: K21.9 - Gastro-esophageal reflux disease without esophagitis CT abdomen and pelvis with contrast Comparison: US/MN/SR - US ABDOMEN - 03/14/23 09:23 EST Findings: Multiple 3-5 mm nodules are seen lung bases. For instance subpleural nodule measuring 4.7 mm on image number 1 of series number 3, 4.8 mm subpleural nodule seen on image number 4, 4.3 mm nodule on image number 6 and 5.6 mm nodule in the left lower lobe on image 9. There is cholelithiasis. The gallbladder is otherwise unremarkable. There is a small right renal cyst. The liver in the rest of the solid organs are otherwise unremarkable. No bowel obstruction, pneumoperitoneum, or pneumatosis. There is colonic diverticulosis without evidence of diverticulitis. The bones are intact. The rest of the GI tract is unremarkable. IMPRESSION: 1. Multiple small pulmonary nodules are noted. According to the Fleischner criteria: 5 mm or smaller nodules need no follow-up in low risk, and [address] follow-up is optional in high risk patients. 2. Cholelithiasis. 3. Colonic diverticulosis. This document has been electronically signed by: Jasper Anderson MD on 10/04/2024 10:13:20
--- OUTSIDE RECORDS SUMMARY | 2024-10-04 06:05 | XMS_ITS | Clinical Summary ---
Author Organization [facility] Address [address] [place] [address] Phone Care Team Providers Care Aircraft Assembler Name Role Phone Eladio Mcdermott MD Primary Care Provider Allergies Active Allergy Reactions Criticality Noted Date Comments Cephalexin 06/01/2022 Social History Tobacco Use Types Packs/Day Years Used Date Smoking Tobacco: Never Assessed Education Answer Date Recorded Are you interested in more education? Not on larry e 06/18/2022 Are you concerned about learning? Not on file 06/18/2022 No 06/18/2022 No 06/18/2022 Digital Access Answer Date Recorded No 07/19/2022 No 07/19/2022 Reliable internet access at home? Not on file 07/19/2022 Device with a working camera? Not on file Intimate Partner Violence Answer Date R ecorded Are you denied basic needs s uch as food, clothing, or medical care? No 06/01/2022 In the past 12 months have y ou been in a relationship with a person who hurts, threatens, or tries to control you? No 06/01/2022 Are you denied basic needs s uch as food, clothing, or medical care? No 06/01/2022 In the past 12 months have y ou been in a relationship with a person who hurts, threatens, or tries to control you? No 06/01/2022 Sex and Gender Information Value Date Recorded Sex Assigned at Not on file Legal Sex Male 5:10 PM EDT Gender Identity Not on file Sexual Orientation Not on file Last Filed Vital Signs Vital Sign Reading Time Taken Comments Blood Pressure 109/68 06/02/2022 12:00 AM EDT Pulse 91 06/01/2022 5:27 PM EDT Temperature 36.9 C (98.4 F) 06/01/2022 11:14 PM EDT Respiratory Rate 16 06/01/2022 5:27 PM EDT Oxygen Saturation 97% 06/02/2022 12:00 AM EDT Inhaled Oxygen Concentration - - Weight 120.7 kg (266 lb) 06/01/2022 5:27 PM EDT Height 167.6 cm (5' 6 ) 06/01/2022 5:27 PM EDT Body Mass Index 42.93 06/01/2022 5:27 PM EDT Plan of Treatment Health Maintenance Due Date Last Done Comments Adult Td,Tdap Booster 1971 LIPID PANEL 1971 DEPRESSION SCREENING 1983 SMOKING Hx and SMOKELESS TOB ACCO SCREENING 07/28/1984 HEPATITIS C SCREENING 07/28/1989 HIV ONE-TIME SCREENING (18-6 5 YEARS) 07/28/1989 COLOGUARD 07/28/2016 COLONOSCOPY 07/28/2016 COLORECTAL CANCER SCREENING 07/28/2016 FIT TEST 07/28/2016 FOBT 07/28/2016 SIGMOIDOSCOPY 07/28/2016 VIRTUAL COLONOSCOPY 07/28/2016 PNEUMOCOCCAL VACCINES (50+ y ears) (1 of 1 - PCV) 07/28/2021 ZOSTER VACCINES (1 of 2) 07/28/2021 COVID-19 VACCINE (1 - 2023-2 5 season) 2023 SCREENING FOR DIABETES 06/01/2025 06/01/2022 HEPATITIS A VACCINES Aged Out No long er eligible based on patient's age to complete this topic HIB VACCINES Aged Out No longer eligi ble based on patient's age to complete this topic MENINGOCOCCAL VACCINES (ACWY) Aged Out No longer eligible based on patient's age to complete this topic MENINGOCOCCAL VACCINES (B) Aged Out N o longer eligible based on patient's age to complete this topic Medical Devices Not on file Insurance H[place] [address] [place] [address] [place] [address] [place] [address] HMO Care Teams Aircraft Assembler Relationship Specialty Start Date End Date Eladio Mcdermott MD [address] [place] [address] [place] [address] PCP - General Internal Medicine 06/01/22 Additional Source Comments The information contained in this document represents components of the legal health record. It is not the complete legal health record.[facility]
--- OUTSIDE RECORDS SUMMARY | 2024-10-04 06:05 | XMS_ITS ---
Author Name [facility] Organization Unknown History of Medication Use Medication Directions Dispensed Refills Start Date End Date Stat us No known medications No known medications active Allergies Allergen Reaction Severity Comment Documented Date Source Statu s CEPHALEXIN RASH/DERMATITIS 06/02/2022 [facility] ac tive Problems Problem Status Onset Date Problem Type Date of Resoluti on Source Cholelithiasis with biliary obstruction active 2022-06-02 ProblemAct [facility] Hyperbilirubinemia active 2022-06-01 ProblemAct [facility] Epigastric pain active 2022-06-01 ProblemAct [facility] Encounters Encounter Type Encounter Reason Primary Diagnosis [facility] Care Team Organization Name Specialty Phone Email Start Date End Da te [facility] 06/02/2022 06/02/2022 [facility] Eladio Mcdermott [facility] 06/02/2022 06/03/19 [facility] 06/02/2022
--- OUTSIDE RECORDS SUMMARY | 2024-10-04 06:05 | XMS_ITS | Patient Health Record ---
Author Organization [facility] Address [address] [place] [address] Care Team Providers Care Desolderer Name Role Phone Baldemar (RETIRED) Eladio JACKMAN Primary Care Provide r [place] [phone] Allergies Allergen (clinical drug ingredient) Drug/Non Drug Allergy documented on EMR Reaction Allergy Type Onset Date Status some antibiotics (uncoded) Unknown Allergy Active Reason For Referral No Information Medications Medication SIG (Take, Route, Frequency, Duration) Notes Start Date End Date Status Hyoscyamine Sulfate 0.125 MG 1-2 tablets Orally every 6 hours prn abdominal pain for 30 days 03/06/2014 Active Problems Problem Type SNOMED Code ICD Code Onset Dates Problem Status W/U Status Risk Notes Problem Irritable bowel syndrome (95732667) Irritable bowel syndrome (564.1) Active confirmed Problem Abdominal pain, LLQ (789.04) Active confirmed Plan Of Treatment Pending Test Test Name Order Date CELIAC PANEL #10 03/06/2014 CT ABD & PELVIS WITH CONTRAST 03/06/2014 Insurance Providers Payer Name Payer Address Payer Phone Subscriber Number Group Number Insured Name Patient Relationship to Insured Coverage Start Date Coverage End Date [facility] [address] [place], [place] [id number] [phone] [id number] ALAN SIFUENTES Self - patient is the insured Medical (General) History Medical History History ICD Code Denies IA,DM,CVA,Lung disease,renal dise ase
--- OUTSIDE RECORDS SUMMARY | 2024-10-04 06:05 | XMS_ITS | Encounter Summary ---
Author Organization [facility] Address [address] [place] [address] Care Team Providers Care Reconciliation Analyst Name Role Phone Unavailable Primary Care Provider [...]
--- OUTSIDE RECORDS SUMMARY | 2024-10-04 06:05 | XMS_ITS | Clinical Summary ---
Author Organization [facility] Address [address] [place] [address] Care Team Providers Care Gas Meter Installer Name Role Phone Eladio Mcdermott MD Primary Care Provider [phone] Allergies Active Allergy Reactions Criticality Noted Date Comments Cephalexin Rash/Dermatitis Low 06/02/2022 Medications No known medications Active Problems Problem Noted Date Diagnosed Date Cholelithiasis with biliary obstruction 06/03/19 23 Epigastric pain 06/01/2022 Overview (06/02/2022): Added automatically from request for surgery [id number] Hyperbilirubinemia 06/01/2022 Overview (06/02/2022): Added automatically from request for surgery [id number] Social History Tobacco Use Types Packs/Day Years Used Date Smoking Tobacco: Never Assessed Sex and Gender Information Value Date Recorded Sex Assigned at Male 06/02/2022 1:16 AM EDT Legal Sex Male 10:56 PM EDT Gender Identity Male 06/02/2022 1:16 AM EDT Sexual Orientation Heterosexual (straight) 06/02 1:16 AM EDT Last Filed Vital Signs Vital Sign Reading Time Taken Comments Blood Pressure 112/76 06/03/2022 7:31 AM EDT Pulse 73 06/03/2022 7:31 AM EDT Temperature 36.2 C (97.2 F) 06/03/2022 7:31 AM EDT Respiratory Rate 16 06/03/2022 7:31 AM EDT Oxygen Saturation 97% 06/03/2022 7:31 AM EDT Inhaled Oxygen Concentration - - Weight 121 kg (266 lb) 06/02/2022 5:48 AM EDT Height 167.6 cm (5' 6 ) 06/02/2022 5:48 AM EDT Body Mass Index 42.93 06/02/2022 5:48 AM EDT Plan of Treatment Health Maintenance Due Date Last Done Comments Hepatitis C Virus Screening 1970 HIV Screening 07/28/1984 DTaP/Tdap/Td Vaccines (1 - Tdap) 07/28/1990 Hepatitis B Vaccines (1 of 3 - 19+ 3-dose series) 09/1990 Colonoscopy 07/28/2016 Pneumococcal Vaccines 50+ (1 of 1 - PCV) 07/28/2021 Zoster (Shingles) Vaccine (1 of 2) 07/28/2021 COVID-19 Vaccine (1 - 2023- season) 2023 Influenza Vaccine 09/20/2024 Insurance [facility] Advance Directives * Full Code (Latest Code Status on File) Date Activated Date Inactivated Comments 06/02/2022 4:53 AM Care Teams Gas Meter Installer Relationship Specialty Start Date End Date Eladio Mcdermott MD [address] [place] [address] [place] [address] PCP - General 06/02/22
[2024-10-04 06:32] LABS: MANUAL DIFF FLAG NO
[2024-10-04 06:36] LABS: Hematocrit 44.9 % (42.0-52.0); Hemoglobin 15.3 g/dl (14.0-18.0); Imm Gran Abs Auto 0.03 X10*3/uL (0.00-0.03); Imm Gran Pct Auto 0.3 % (0.0-0.4); Lymphocytes Absolute Auto 1.5 X10*3/uL (1.2-4.9); Mean Corpuscular HGB Conc 34.1 g/dl (31.0-36.0); Mean Corpuscular Hemoglobin 31.2 pg (27.0-33.0); Mean Corpuscular Volume 91.4 fL (80.0-98.0); NRBC Abs Auto 0.000 X10*3/uL (0.0-0.012); NRBC Pct Auto 0.0 /100WBC (0.0-0.2); Platelet Count 278 X10*3/uL (160-400); Red Blood Count 4.91 X10*6/uL (4.60-5.80); White Blood Count 9.9 X10*3/uL (4.8-10.8)
[2024-10-04 06:56] LABS: Alanine Aminotransferase 18 U/L (0-40); Albumin Level 4.3 g/dL (3.5-5.0); Alkaline Phosphatase 68 U/L (39-117); Anion Gap 11 (12-20); Aspartate Amino Transferase 22 U/L (5-37); Blood Urea Nitrogen 16 mg/dL (9-16); Calcium 8.7 mg/dL (8.4-10.2); Carbon Dioxide 26 mmol/L (22-29); Chloride 105 mmol/L (96-108); Cholesterol 160 mg/dL (<200); Estimated Glomerular Filt Rate > 60; HDL Cholesterol 34 mg/dL (>40); Potassium 4.4 mmol/L (3.3-5.1); Sodium 138 mmol/L (135-145); Total Protein 7.7 g/dL (6.5-8.0); Triglycerides 89 mg/dL (<150)
[2024-10-04 07:54] LABS: Free T4 (Free Thyroxine) 1.09 ng/dL (0.71-1.85)
[2024-10-04] MEDS: Barium Sulfate Oral (Berry) 450 ML ORAL.SUSP 900 ML PO (08:33)
[2024-10-04] MEDS: iohexoL 350 MG/ML 100 ML INFUS..BTL 85 ML IV (08:33)
== END 2024-10-04 06:04 | disposition home or self-care (01) ==
LOC: HO.CT 06:03
PROVIDERS: PCP Internal Medicine; Visit Provider Internal Medicine
DX: K21.9 Gastro-esophageal reflux disease without esophagitis (principal); K43.9 Ventral hernia without obstruction or gangrene; R10.9 Unspecified abdominal pain; E78.5 Hyperlipidemia, unspecified; E66.813 Obesity, class 3
CPT/HCPCS: 36415; 74177; 80053; 80061; 84439; 84443; 85025; Q9967

== ENCOUNTER → 2024-10-04 06:06 | Outpatient (BNV) | payer OTHER, SELFPAY | PROVIDERS: PCP Internal Medicine; Visit Provider Radiology Diagnostic Radiology | DX: K57.30 Diverticulosis of large intestine without perforation or abscess without bleeding (principal) | CPT/HCPCS: 74177 ==

== ENCOUNTER 2024-10-25 10:03 | Outpatient (AMB) | payer OTHER, SELFPAY ==
[2024-10-25 10:34] VITALS: BP 122/82; PULSE 71; RESP 14; O2SAT 97; BMI 40.3
--- NOTE | 2024-10-25 10:34 | A.OFFPC_ITS ---
Vital Signs 10/25/24 10:34 Height 5 ft 5 in Weight 242 lb 2 oz BMI 40.3 BP 122/82 Blood Pressure Location Rt brachial Position Sitting Respiration 14 Pulse 71 Pulse Source Pulse Oximeter Pulse Oximetry (%) 97 Oxygen Delivery Method Room Air Intake Visit Reasons: GERD follow-up Intake Note: Follow up GERD. CT recorda Nondestructive Tester Required: No Allergies cephalexin Allergy (Intermediate, Verified 10/25/24 10:36) Hives semaglutide (From Wegovy) Allergy (Verified 10/25/24 10:56) Abdominal Pain Tobacco use date assessed: 07/25/24 Dental Screening Dental Screen Date: 07/25/24 HPI HPI Comments History of Present Illness Details The patient is a 54 year old male with a past medical history of GERD, hyperlipidemia, obesity, anemia, low vitamin D, obesity, ventral hernia presenting for follow up GERD: On omeprazole 20mg History of ventral hernia repair. Reports frequent central/left abdominal pain. CT abd/pelvis normal. declines further work up/referral at this time Obesity: Patient notes increased flatulence, abdominal cramping and constipation since switch from wegovy to zepbound. Cologuard 08/2024 negative ROS see HPI PHYSICAL EXAM: GENERAL: Alert and oriented x 3. NAD EYES: EOMI. Anicteric. HENT: Moist mucous membranes. No scleral icterus. No cervical lymphadenopathy. LUNGS: Clear to auscultation bilaterally. CARDIOVASCULAR: Regular rate and rhythm. No murmur. No JVD. ABDOMEN: Soft, ttp 4inch left of umbilicus EXTREMITIES: No edema. Non-tender. SKIN: No rashes or lesions. Warm. NEUROLOGIC: No focal neurological deficits. CN II-XII grossly intact PSYCHIATRIC: Cooperative. Appropriate mood and affect [facility] Medical History GERD (gastroesophageal reflux disease) Surgical History H/O ventral hernia repair (10/10/22) History of endoscopic retrograde cholangiopancreatography History of tonsillectomy Family History Paternal Grandmother Colon cancer Mother No problems noted. Father No problems noted. Social History Housing: House Are you a primary point of care specialist to a significant other at home: No Do you presently have visiting nurse or other home services: No Alcohol intake: current Alcohol intake frequency: holidays/special occasions only Patient Tobacco Use Status: Never used Tobacco e-Cigarette/Vaping Use: Former Use Second Hand Smoke Exposure: No service: No Current occupational status: employed Cognitive needs: No Hearing needs: No Vision needs: Yes (rx glasses) Questionnaire PHQ-9 Over the last 2 weeks, how often have you been bothered by any of the following problems? 1. Little interest or pleasure in doing things: several days 2. Feeling down, depressed, or hopeless: several days 3. Trouble falling or staying asleep, or sleeping too much: nearly every day 4. Feeling tired or having little energy: several days 5. Poor appetite or overeating: not at all 6. Feeling bad about yourself - or that you are a failure or have let yourself or your family down: several days 7. Trouble concentrating on things, such as reading the newspaper or watching television: several days 8. Moving or speaking so slowly that other people could have noticed. Or the opposite - being so fidgety or restless that you have been moving around a lot more than usual: not at all 9. Thoughts that you would be better off or of hurting yourself in some way: not at all Total score: 8 Depression Screening Interpretation: Positive Depression Screening Follow-up: Existing condition Depression Screening Done: Yes 51364 - PHQ-9 Billing: Yes Source: Developed by Drs. Glen Aviles, Geetha Morris, Baron Saavedra and colleagues, with an educational christo from [employer]. Thrive Questionnaire Date Thrive assessed: 10/22/24 I am a: Patient What is your living situation today?: I have a steady place to live Within the past 12 months, did the food you bought not last and you didn't have the money to get more?: Never true Within the past 12 months, did you worry whether your food would run out before you got money to buy more?: Never true Do you have trouble paying for medicines?: No Do you have trouble getting transportation to medical appointments?: No Do you have trouble paying your heating and electricity bill?: No Do you have trouble taking care of your child, family member or friend?: No Do you have trouble with day-to-day activities such as bathing, preparing meals, shopping, managing finances, etc.?: No Are you currently unemployed and looking for a job?: No Are you interested in more education?: No Please select the resources that you would like help with: None Currently or been in a relationship where the following occur: No concerns reported THRIVE Score: 0 AUDIT C Alcohol Use Questionnaire (AUDIT-C) 1. How often do you have a drink containing alcohol?: Never 3. How often do you have six or more drinks on one occasion?: Never Total Score: 0 OLENA-7 AMB Questionnaire OLENA-7 Date OLENA - 7 assessed: 07/25/24 Feeling nervous, anxious, or on edge: 1 = Several days Not being able to stop or control worryin = Not at all Worrying too much about different things: 0 = Not at all Trouble relaxin = Several days Being so restless that it is hard to sit still: 0 = Not at all Becoming easily annoyed or irritable: 1 = Several days Feeling afraid as if something awful might happen: 0 = Not at all Total OLENA-7 score (0-4 normal; 5-9 mild; 10-14 moderate; 15-21 severe): 3 Source: Developed by Drs. Glen Aviles, Geehta Morris, Baron Saavedra and colleagues, with an educational christo from [employer]. Physical exam (Primary Care) Vital Signs: Last Vital Signs Pulse 71 10/25/24 10:34 Resp 14 10/25/24 10:34 BP 122/82 10/25/24 10:34 Pulse Ox 97 10/25/24 10:34 Oxygen Delivery Method Room Air 10/25/24 10:34 BMI result Body Mass Index 40.3 Tobacco/Smoking Status: Tobacco use Status Tobacco use date assessed 07/25/24 10/25/24 10:38 Patient Tobacco Use Status Never used Tobacco 10/25/24 10:38 e-Cigarette/Vaping Use Former Use 10/25/24 10:38 PHQ-9: PHQ-9 Score PHQ-9: Total score 8 10/25/24 10:47 Depression Screening Interpretation: Positive Depression Screening Follow-up: Existing condition Thrive Assessment: Date of Thrive Assessment Date Thrive assessed 10/22/24 10/25/24 10:38 Currently or been in a relationship where the following occur: No concerns reported Coding Level of Care Code Est Pt Level 4 (21310) Complex EM visit Add On G2211 Diagnoses Dyslipidemia E78.5 Gastroesophageal reflux disease, unspecified whether esophagitis present K21.9 Esophagitis presence: esophagitis presence not specified Ventral hernia without obstruction or gangrene K43.9 Obstruction and gangrene presence: without obstruction or gangrene Additional Codes PHQ-9 - 54354 - PHQ-9 Billing: Yes ([id number]) Assessment & Plan Assessment & Plan (1) Dyslipidemia: Code(s): E78.5 - Hyperlipidemia, unspecified Category: Medical (2) GERD (gastroesophageal reflux disease): Code(s): K21.9 - Gastro-esophageal reflux disease without esophagitis Category: Medical Qualifiers: Esophagitis presence: esophagitis presence not specified Qualified Code(s): K21.9 - Gastro-esophageal reflux disease without esophagitis (3) Ventral hernia: Code(s): K43.9 - Ventral hernia without obstruction or gangrene Category: Medical Qualifiers: Obstruction and gangrene presence: without obstruction or gangrene Qualified Code(s): K43.9 - Ventral hernia without obstruction or gangrene Plan GERD-stable on omeprazole Obesity-not tolerating Wegovy. Restart zepbound Anxiety start hydroxyzine Labs ordered Orders: Orders Comprehensive Met. Panel Today E78.5 - Hyperlipidemia, unspecified, K21.9 - Gastro-esophageal reflux disease without esophagitis, K43.9 - Ventral hernia without obstruction or gangrene, R10.12 - Left upper quadrant pain Lipid Panel Today E78.5 - Hyperlipidemia, unspecified, K21.9 - Gastro- esophageal reflux disease without esophagitis, K43.9 - Ventral hernia without obstruction or gangrene, R10.12 - Left upper quadrant pain Hemoglobin A1c Today E78.5 - Hyperlipidemia, unspecified, K21.9 - Gastro- esophageal reflux disease without esophagitis, K43.9 - Ventral hernia without obstruction or gangrene, R10.12 - Left upper quadrant pain Prostate Specific Antigen Today E78.5 - Hyperlipidemia, unspecified, K21.9 - Gastro-esophageal reflux disease without esophagitis, K43.9 - Ventral hernia without obstruction or gangrene, R10.12 - Left upper quadrant pain Complete Blood Count Auto Diff Today E78.5 - Hyperlipidemia, unspecified, K21.9 - Gastro-esophageal reflux disease without esophagitis, K43.9 - Ventral hernia without obstruction or gangrene, R10.12 - Left upper quadrant pain Medications: New Zepbound (tirzepatide (weight loss)) for 4 weeks 2.5 mg (0.5 mL) subcut QWEEK 6 mL 3RF NS E66.813 - Obesity, class 3, E78.5 - Hyperlipidemia, unspecified hydroxyzine HCl 25 - 50 mg (1 - 2 x 25 mg) PO Q8H PRN 90 tabs 3RF itching
--- OUTSIDE RECORDS SUMMARY | 2024-10-25 10:58 | XMS_ITS | Clinical Summary ---
Author Organization [facility] Address [address] [place] [address] Care Team Providers Care Offset Lithographic Press Setter Name Role Phone Eladio Mcdermott MD Primary Care Provider [phone] Allergies Active Allergy Reactions Criticality Noted Date Comments Cephalexin Rash/Dermatitis Low 06/02/2022 Medications No known medications Active Problems Problem Noted Date Diagnosed Date Cholelithiasis with biliary obstruction 06/03/19 23 Epigastric pain 06/01/2022 Overview (06/02/2022): Added automatically from request for surgery [id number] Hyperbilirubinemia 06/01/2022 Overview (06/02/2022): Added automatically from request for surgery [id number] Social History Tobacco Use Types Packs/Day Years [...] Zoster (Shingles) Vaccine (1 of 2) 07/28/2021 Influenza Vaccine 09/20/2024 COVID-19 Vaccine ( - 2023- season) 2024 [facility] Advance Directives * Full Code (Latest Code Status on File) Date Activated Date Inactivated Comments 06/02/2022 4:53 AM Care Teams Offset Lithographic Press Setter Relationship Specialty Start Date End Date Eladio Mcdermott MD [address] [place] [address] [place] [address] PCP - General 06/02/22
--- OUTSIDE RECORDS SUMMARY | 2024-10-25 10:58 | XMS_ITS | Patient Health Record ---
Author Organization [facility] Address [address] [place] [address] Care Team Providers Care Head Soft Sugar Operator Name Role Phone Baldemar (RETIRED) Eladio JACKMAN Primary Care Provide Glen Zepeda [phone] Allergies Allergen (clinical drug ingredient) Drug/Non Drug [...] Status Risk Notes Problem Irritable bowel syndrome (72107797) Irritable bowel syndrome (564.1) Active confirmed Problem Left lower quadrant pain (608065026) Abdominal pain, LLQ (789.04) Active confirmed Plan Of Treatment Pending Test Test Name Order Date CELIAC PANEL #10 03/06/2014 CT ABD & PELVIS WITH CONTRAST 03/06/2014 Insurance Providers Payer Name Payer Address Payer Phone Subscriber Number Group Number Insured Name Patient Relationship to Insured Coverage Start Date Coverage End Date [facility] [address] [place], [place] [id number] [phone] [id number] ALAN SIFUENTES Self - patient is the insured Medical (General) History Medical History History ICD Code Denies AR,DM,CVA,Lung disease,renal dise ase
--- OUTSIDE RECORDS SUMMARY | 2024-10-25 10:58 | XMS_ITS | Clinical Summary ---
Author Organization [facility] Address [address] [place] [address] Phone Care Team Providers Care Cds Sales Advisor Name Role Phone Eladio Mcdermott MD Primary [...] Not on file Insurance [place] [address] [place] [address] [place] [address] [place] [address] HMO Care Teams Cds Sales Advisor Relationship Specialty Start Date End Date Eladio Mcdermott MD [address] [place] [address] [place] [id number] PCP - General Internal Medicine 06/01/22 Additional Source Comments The information contained in this document represents components of the legal health record. It is not the complete legal health record.[facility]
--- OUTSIDE RECORDS SUMMARY | 2024-10-25 10:58 | XMS_ITS | Clinical Summary ---
Author Organization [facility] Address [address] [facility] 7 [place] [address] Care Team Providers Care Workers Compensation Legal Secretary Name Role Phone Unavailable Primary Care Provider Unavailabl e Social History Tobacco Use Types Packs/Day Years Used Date Smoking Tobacco: Never Assessed Sex and Gender Information Value Date Recorded Sex Assigned at Not on file Legal Sex Male 5:37 PM EDT Gender Identity Not on file Sexual Orientation Not on file Plan of Treatment Health Maintenance Due Date Last Done Comments CT Colonography 1971 Colonoscopy 1971 Colorectal Cancer Screening 1971 Depression Screening 1971 FIT DNA/Cologuard 1971 FIT 1971 FOBT 1971 Lipid Panel 1971 Sigmoidoscopy 1971 Disability Screening 1971 Alcohol/Substance Use Screening 1983 Tobacco Screening 1983 DTaP/Tdap/Td Vaccines (1 - Tdap) 07/28/1990 Hepatitis B Vaccines (1 of 3 - 19+ 3-dose series) 07/28/1990 Pneumococcal Vaccine: 50+ Ye ars (1 of 1 - PCV) 07/28/2021 Zoster Vaccines (1 of 2) 07/28/2021 COVID-19 Vaccine ( - 2023-2 5 season) 2023 Influenza Vaccine (#1) 2024 RSV Patients and Pa tients Aged 60 years or older (1 - 1-dose 75+ series) 07/28/2046 HIB Vaccines Aged Out No longer eligi ble based on patient's age to complete this topic HPV Vaccines Aged Out No longer eligi ble based on patient's age to complete this topic Hepatitis A Vaccines Aged Out No long er eligible based on patient's age to complete this topic IPV Vaccines Aged Out No longer eligi ble based on patient's age to complete this topic Meningococcal B Vaccine Aged Out No l onger eligible based on patient's age to complete this topic Meningococcal Vaccine Aged Out No ryan nicole eligible based on patient's age to complete this topic RSV under 20 months Aged Out No longe r eligible based on patient's age to complete this topic Rotavirus Vaccines Aged Out No longer eligible based on patient's age to complete this topic
--- OUTSIDE RECORDS SUMMARY | 2024-10-25 10:58 | XMS_ITS | Encounter Summary ---
Author Organization [facility] Address [address] [place] [address] Phone Care Team Providers Care Tying Machine Operator Lumber Name Role Phone Eladio Mcdermott MD Primary Care Provider Encounter Details Date Type Department Care Team (Late st Contact Info) Description 06/01/2022 Procedure Pass [facility], Ct Scan - [address] [address] Social History Tobacco Use Types Packs/Day Years Used Date Smoking Tobacco: Never Assessed Intimate Partner Violence Answer Date R ecorded [...] on file documented as of this encounter Functional Status * Calculated C-SSRS Risk Score (Lifetime/Recent) Answer Date of Assessment Author No Risk Indicated 06/01/2022 5:28 PM EDT Yonis mcgarry, Amina James RN * [place] Suicide Severity Rating Scale (Screener/Recent Self-Report) Question Answer Date of Assessment Author 1. Wish to be (Past 1 Month) No 06/01/2022 5:28 PM EDT Amina Mathews, JONATHAN 2. Non-Specific Active Suicidal Thoughts (Past 1 Month) No 06/01/2022 5:28 PM EDT Amina Mathews, JONATHAN 6. Suicidal Behavior (Lifetime) No 06/01/2022 5:28 PM EDT Amina Mathews, JONATHAN documented as of this encounter Plan of Treatment Not on file documented as of this encounter Visit Diagnoses Not on filedocumented in this encounter Care Teams Tying Machine Operator Lumber Relationship Specialty Start Date End Date Eladio Mcdermott MD [address] [place] [address] [place] [address] PCP - General Internal Medicine 06/01/22 documented as of this encounter Additional Source Comments The information contained in this document represents components of the legal health record. It is not the complete legal health record.[facility]
--- OUTSIDE RECORDS SUMMARY | 2024-10-25 10:58 | XMS_ITS | Encounter Summary ---
Author Organization [facility] Address [address] [place] [address] Care Team Providers Care Toll Transmission Worker Name Role Phone Unavailable Primary Care Provider [...]
== END 2024-10-25 11:13 | disposition home or self-care (01) ==
LOC: HO.HMCFM 10:04
PROVIDERS: PCP Internal Medicine; Visit Provider Internal Medicine
DX: E78.5 Hyperlipidemia, unspecified (principal); K21.9 Gastro-esophageal reflux disease without esophagitis; K43.9 Ventral hernia without obstruction or gangrene

== ENCOUNTER → 2024-10-25 10:03 | Outpatient (BNVA) | payer OTHER, SELFPAY | PROVIDERS: PCP Internal Medicine; Visit Provider Internal Medicine | DX: K21.9 Gastro-esophageal reflux disease without esophagitis (principal); E78.5 Hyperlipidemia, unspecified; E66.9 Obesity, unspecified; Z68.41 Body mass index [BMI] 40.0-44.9, adult; F41.9 Anxiety disorder, unspecified; Z87.19 Personal history of other diseases of the digestive system; Z79.899 Other long term (current) drug therapy; Z13.31 Encounter for screening for depression | CPT/HCPCS: 96127 ==